=== PATIENT | male | born 1995 | race Caucasian/White ===

== ENCOUNTER 2020-01-05 15:23 | Emergency (ER) | payer BC, MEDICAID ==
[~2020-01-05] VITALS: Ht 180.3 cm; Wt 83.5 kg
[2020-01-05 15:42] VITALS: Ht 180.3 cm; Wt 83.5 kg
[2020-01-05 17:31] LABS: BASOPHIL % 0.7 % (0-2); PLATELET COUNT 337 x10^3mcL (130-400); RED CELL DISTRIBUTION WIDTH 13.1 % (11.5-14.5)
[2020-01-05 17:36] LABS: CARBON DIOXIDE 31.3 mmol/L (21-32); CHLORIDE SERUM 104 mmol/L (98-107); CREATININE SERUM 0.7 mg/dL (0.7-1.3); GFR1 > 60 mL/min; GLUCOSE SERUM 88 mg/dL (74-106); POTASSIUM SERUM 3.7 mmol/L (3.5-5.1); SODIUM SERUM 139 mmol/L (136-145)
[2020-01-05 17:41] LABS: ALKALINE PHOSPHATASE 77 U/L (46-116); ALT/SGPT 21 U/L (16-63); AST/SGOT 18 U/L (15-37); BILIRUBIN TOTAL 0.3 mg/dL (0.20-1.00); TOTAL PROTEIN, SERUM 7.6 g/dL (6.4-8.2)
[2020-01-05 19:27] VITALS: BP 114/58
== END 2020-01-05 19:27 | disposition home or self-care (01) ==
LOC: ED 15:23
PROVIDERS: Emergency Medicine
DX: K57.90 Diverticulosis of intestine, part unspecified, without perforation or abscess without bleeding (principal); Z90.89 Acquired absence of other organs
CPT/HCPCS: J1885; J7030